=== PATIENT | female | born 1950 | race Two or more races ===

== ENCOUNTER 2022-09-19 08:44 | Inpatient (IN) | payer OTHER ==
[~2022-09-19] VITALS: Ht 157.5 cm; Wt 72.6 kg
[2022-09-19] MEDS ORDERED: ATACAND32 MG PO (08:53)
[2022-09-19] MEDS ORDERED: NORVASC5 MG PO (08:53)
--- NOTE | 2022-09-19 08:54 | NUR ---
SE RECIBE PTE EN AMBULANCIA ALERTA Y ORIENTADA X3. REFIERE QUE SE CHAIM EN LA ACERA Y SE LASTIMO LA CADERA DERECHA Y CODO DERECHO. SE MIDEN SV Y SE UBICA EN ALEXA 10 CON BARANDAS ELEVADAS POR SEGURIDAD
--- NOTE | 2022-09-19 10:06 | NUR ---
SE ORIENTA PTE SOBRE TX A SEGUIR, LA MISMA REFIERE ENTENDER. SE DERICK MUESTRAS DE LAB Y SE CANALIZA BAJO MEDIDAS ASEPTICAS. PEND X-RAY Y U/A. PTE REHUSA MED ORDENADO
[2022-09-21] MEDS ORDERED: ELIQUIS2.5 MG PO (07:30)
[2022-09-21] MEDS ORDERED: PERCOCET 5-3251 EACH PO (07:30)
[2022-09-21] MEDS ORDERED: DUI500 PO (07:30)
== END 2022-09-22 19:32 | DRG 522 ==
LOC: ER 08:44 → SURG 17:33
PROVIDERS: ADMIT Orthopaedic Surgery; ATTEND Orthopaedic Surgery
PROC: 0MBL0ZZ Excision of Right Hip Bursa and Ligament, Open Approach (ICD-10-PCS; 2022-09-20)
PROC: 0SRR0JZ Replacement of Right Hip Joint, Femoral Surface with Synthetic Substitute, Open Approach (ICD-10-PCS; principal; 2022-09-20 14:00)
DX: S72.031A Displaced midcervical fracture of right femur, initial encounter for closed fracture (principal); D62 Acute posthemorrhagic anemia; M16.12 Unilateral primary osteoarthritis, left hip; M81.8 Other osteoporosis without current pathological fracture; I10 Essential (primary) hypertension